=== PATIENT | female | born 1940 | race Caucasian/White ===

== ENCOUNTER 2021-05-18 11:00 | Inpatient (IN) | payer MEDICARE, BC ==
[~2021-05-18] VITALS: Ht 165.1 cm; Wt 65.0 kg
[~2021-05-18 11:00] MED LIST: FLUO20CA39 PO; FURO-150 PO; HYDR-4353 PO; LEVO150T8 PO; OXYB5TAB16 PO; TRIA0.2585 PO
[2021-06-07] MEDS ORDERED: FERR-39 PO (11:15)
[2021-06-07] MEDS ORDERED: VITA400T10 PO (11:15)
[2021-06-07] MEDS ORDERED: CALC-723 PO (11:15)
[2021-06-07] MEDS ORDERED: CHOL100046 PO (11:15)
[2021-06-07] MEDS ORDERED: ASPI-1085 PO (11:15)
[2021-06-07] MEDS ORDERED: LUTE1CAP5 PO (11:15)
[2021-06-08] VITALS (17 sets, daily range): BP systolic 100–208; BP diastolic 49–96
[2021-06-08] MEDS ORDERED: ringers solution, lacted 1,000 ML IV SCH ×2 (05:00→08:05)
[2021-06-08] MEDS ORDERED: cefazolin/dext.iso 2gm/50ml IV ONE (05:30)
[2021-06-08] MEDS ORDERED: famotidine 20mg tablet PO ONE (05:30)
[2021-06-08] MEDS ORDERED: VANCOMYCIN INJ 1000 MG in NORMAL SALINE 200ml IV.SOLN IV ONE (05:30)
[2021-06-08] MEDS ORDERED: tranexamic acid inj. 1,000 MG in 0.7% saline 100 ML PMX IV ONE (05:30)
[2021-06-08] MEDS ORDERED: [UNRECOGNIZED DRUG - CODE] PO (06:13)
[2021-06-08] MEDS ORDERED: vancomycin 1,000mg inj ONE (06:24)
[2021-06-08 07:17] LABS: ALBUMIN 3.4 G/DL (3.4-5.0); ALBUMIN/GLOBULIN RATIO 1.1 (1.1-1.5); BLOOD UREA NITROGEN 20 MG/DL (7-18); BUN/CREATININE RATIO 39.2 (6.6-38.0); CALCIUM 9.1 MG/DL (8.5-10.1); CHLORIDE 107 MMOL/L (99-107); CREATININE 0.51 MG/DL (0.40-0.90); PRE OP ALT 9 U/L (30-65); PRE OP ANION GAP 7 (8-16); PRE OP AST 10 U/L (10-37); PRE OP BILIRUB, TOTAL 0.3 MG/DL (0.0-1.0); PRE OP GLUCOSE 102 MG/DL (70-104); PRE OP POTASSIUM 4.3 MMOL/L (3.4-5.1); PRE OP SODIUM 140 MMOL/L (135-145); TOTAL CARBON DIOXIDE 26.1 MMOL/L (24-32); TOTAL PROTEIN 6.6 G/DL (6.4-8.2); eGFR > 90 ML/MIN
[2021-06-08] MEDS ORDERED: midazolam 1 mg/ML 2ml injection ONE (07:41)
[2021-06-08] MEDS ORDERED: Thrombin (Bovine) 5,000 unit vial TP ONE (07:57)
[2021-06-08] MEDS ORDERED: HYDROmorphone/PF 0.2 MG/ML SYRINGE IV PRN ×2 (08:05)
[2021-06-08] MEDS ORDERED: meperidine/PF 25mg/ml syringe IV PRN (08:05)
[2021-06-08] MEDS ORDERED: proCHLORperazine 10 MG/2 ml inj IV PRN (08:05)
[2021-06-08] MEDS ORDERED: acetaminophen 1,000mg/100ml IV 100 ML IV PRN (08:05)
[2021-06-08] MEDS ORDERED: morphine 4 MG/ML inj SYRINge IV PRN (08:05)
[2021-06-08] MEDS ORDERED: hydrALAZINE 20mg/ml inj. IV PRN (08:05)
[2021-06-08] MEDS ORDERED: labetalol 20mg/4ml (5mg/ml) syringe IV PRN (08:05)
[2021-06-08] MEDS ORDERED: ondansetron/PF 4mg/2ml inj IV PRN ×3 (08:05→10:35)
[2021-06-08] MEDS ORDERED: diphenhydrAMINE 50 mg/ml inj IV PRN (08:05)
[2021-06-08] MEDS ORDERED: naloxone 2mg/2ml inj 2 MG in normal saline 500ml IV soln 500 ML IV PRN (08:05)
[2021-06-08] MEDS ORDERED: morphine 2 MG/ML inj. syringe IV PRN (08:05)
[2021-06-08] MEDS ORDERED: morphine /PF 1mg/ml 10ml inj. ONE (08:15)
[2021-06-08] MEDS ORDERED: propofol inj 20 ML IV ONE ×3 (08:20)
[2021-06-08] MEDS ORDERED: 0.9 % SODIUM CHLORIDE 10 ML VIAL ONE ×2 (08:20)
[2021-06-08] MEDS ORDERED: ROPIVAcaine 0.5% (5mg/ml) 30ml vial ONE (08:20)
[2021-06-08] MEDS ORDERED: bisacodyl 10mg suppository rectal RC PRN (10:35)
[2021-06-08] MEDS ORDERED: acetaminophen 325mg tablet PO PRN (10:35)
[2021-06-08] MEDS ORDERED: diphenhydrAMINE 25mg capsule PO PRN ×2 (10:35)
[2021-06-08] MEDS ORDERED: HYDROmorphone 1 mg/ml syringe IV PRN (10:35)
[2021-06-08] MEDS ORDERED: magnesium hydroxide 30ml (MOM) UD suspension PO PRN (10:35)
[2021-06-08] MEDS ORDERED: HYDROmorphone inj. 0.5 MG/0.5 ML DISP.SYRIN IV PRN (10:35)
[2021-06-08] MEDS ORDERED: oxyCODONE IR 5mg (immed. release) tablet PO PRN ×2 (10:35)
--- NOTE | 2021-06-08 10:40 | NUR ---
Received from OR via BED. 18G TO LEFT AC RUNNING LR, SL TO RIGHT AC. DSG TO LEFT HIP DCI WITH HIP WRAP AND POWDER PACK IN PLACE, FC DRAINING CLEAR YELLOW , accompanied by Anesthesiologist DR NAQVI AND HYDRO GENERATION SUPERVISORNANCY ORR and report given by Anesthesiolgist. Addendum: 06/08/21 at 1103 by Rossy Walker RN Amended: Links added.
--- NOTE | 2021-06-08 12:00 | NUR ---
received report from NANCY Blair. Patient arrived to the floor. VSS. no complaints
[2021-06-08] MEDS: potassium cl 20mEq in 1/2 NS 1,000 ML IV SCH ×2 (12:36→15:11)
[2021-06-08] MEDS: gabapentin 300mg capsule PO SCH ×2 (12:40→22:18)
[2021-06-08] MEDS: acetaminophen 325mg tablet PO SCH ×2 (13:07→20:18)
[2021-06-08] MEDS ORDERED: tranexamic acid 1gm/0.7% sal. 100 ML IV ONE (13:40)
[2021-06-08] MEDS: ceFAZolin/D5W- 1GM premix 50 ML IV SCH (15:11)
[2021-06-08] MEDS ORDERED: ASPIRIN PO PRN (16:50)
[2021-06-08] MEDS ORDERED: CAFFEINE PO PRN (16:50)
[2021-06-08] MEDS ORDERED: zolpidem 5mg tablet PO PRN (17:00)
--- NOTE | 2021-06-08 17:38 | NUR ---
POC updated with nelli De Leon.
[2021-06-08] MEDS ORDERED: VANCOMYCIN 1GM/200ML IVPB 200 ML IV SCH (20:00)
[2021-06-08] MEDS: HYDROcodone/acetaminophen 10/325mg tab PO PRN (20:17)
[2021-06-08] MEDS ORDERED: sennosides 8.6mg tablet PO SCH (21:00)
[2021-06-08] MEDS ORDERED: oxybutynin 5mg tablet PO SCH (21:00)
[2021-06-09] VITALS: BP 97/58
[2021-06-09] MEDS: ceFAZolin/D5W- 1GM premix 50 ML IV SCH (00:18)
[2021-06-09] MEDS: potassium cl 20mEq in 1/2 NS 1,000 ML IV SCH ×2 (00:24→10:35)
[2021-06-09] MEDS: acetaminophen 325mg tablet PO SCH ×2 (02:18→08:33)
[2021-06-09] MEDS: HYDROcodone/acetaminophen 10/325mg tab PO PRN (05:44)
[2021-06-09 06:20] LABS: BASOPHILS % (AUTO) 0.6 % (0-1); EOSINOPHILS # (AUTO) 0.1 X10'3 (0-0.9); EOSINOPHILS % (AUTO) 1.9 % (0-6); HEMATOCRIT 31.7 % (35.0-45.0); HEMOGLOBIN 10.6 g/dl (12.0-16.0); LYMPHOCYTES # (AUTO) 1.2 X10'3 (1.1-4.8); MEAN CORPUSCULAR HEMOGLOBIN 30.6 PG (27.0-31.0); MEAN CORPUSCULAR HGB CONC 33.4 g/dL (33.0-36.5); MEAN CORPUSCULAR VOLUME 91.7 FL (78-98); MEAN PLATELET VOLUME 7.9 FL (7.4-10.4); MONOCYTES # (AUTO) 0.8 X10'3 (0-0.9); MONOCYTES % (AUTO) 11.9 % (2-12); NEUTROPHILS # (AUTO) 4.7 X10'3 (1.8-7.7); NEUTROPHILS % (AUTO) 68.6 % (42-75); PLATELET COUNT 207 X10'3 (140-440); RED BLOOD COUNT 3.46 X10'6 (4.20-5.60); RED CELL DISTRIBUTION WIDTH 13.1 % (11.5-14.5); WHITE BLOOD COUNT 6.9 X10'3 (4.5-11.0)
[2021-06-09 06:30] LABS: ANION GAP 5 (8-16); CHLORIDE 105 MMOL/L (99-107); POTASSIUM 4.8 MMOL/L (3.5-5.1); SODIUM 136 MMOL/L (135-145); TOTAL CARBON DIOXIDE 26.3 MMOL/L (24-32)
[2021-06-09] MEDS ORDERED: levoTHYROXINE 75mcg tablet PO SCH (07:00)
--- NOTE | 2021-06-09 07:16 | NUR ---
Per report son is supposed to call to get update for pt. and wants to leave if pt. discharged r/t living out by [place]. Pt. worked with PT and is ok to ambulate and do stairs with FWW. Pt. states her FWW is in the hospital however is not in her room. Will verify with son that he has walker or else find her walker here before DC. Pt. also has f/c removed at 0530 per report. Will need to monitor for void as pt. has not voided yet. Spoke with ortho ZINC MINER on phon, she plans to DC pt. after these things have been taken care of and will round around 9-930am this am to finish discharge.
[2021-06-09 08:00] VITALS: BP 116/44
[2021-06-09] MEDS ORDERED: furosemide 20MG tablet PO SCH (08:00)
[2021-06-09] MEDS ORDERED: FLUoxetine 20mg capsule PO SCH (08:00)
[2021-06-09] MEDS ORDERED: cholecalciferol (vitamin D3) 1,000 unit (25mcg) tablet PO SCH (08:00)
[2021-06-09] MEDS ORDERED: calcium carbonate 500mg chew tablet PO SCH (08:00)
[2021-06-09] MEDS ORDERED: enoxaparin 40mg/0.4ml syringe SQ SCH (08:00)
[2021-06-09] MEDS ORDERED: ferrous sulfate 325mg tablet PO SCH (08:00)
[2021-06-09] MEDS: gabapentin 300mg capsule PO SCH ×2 (08:32→13:00)
[2021-06-09 11:30] VITALS: BP 109/64
--- NOTE | 2021-06-09 11:54 | NUR ---
DISCHARGE NOTE: Reviewed discharge paperwork with pt. Discussed new medication Lovenox which pt. has at home already. Discussed how to administer it and provided alcohol swabs which pt did not have. Discussed possible ASE of blood thinner and Shelley. Discussed ways to prevent falls at home. Pt. has her walker at bedside. Pt. states she has two family members at home to help take care of her and she also has her dogs staying at another house to prevent injury. Pt. denies any bladder distention and had voided 3 large voids since f/c removed. IVs DC'd, cannulas intact, no s/sx bleeding noted, pressure bandages applied and pt knows to remove Coban in a couple hours. She denies smoking and was able to verbalize several s/sx of infection and knows to call her MD if any of these appear. She denies having an appointment made with Dr. Ceron already but states she will call his office [facility] to make an jess. Waiting on son to arrive and pick her up.
[2021-06-09] MEDS ORDERED: celeCOXIB 100mg capsule PO SCH (20:00)
[2021-06-10] MEDS ORDERED: acetaminophen 325mg tablet PO PRN (10:35)
== END 2021-06-09 13:45 | disposition home or self-care (01) | DRG 470 ==
LOC: PAS IN 06-08 05:06 → UNDOADMIN 06-08 05:06 → PAS IN 06-08 10:41 → SUR 3N 06-08 12:00 → PAS IN 06-08 12:00
PROVIDERS: ADMIT Orthopaedic Surgery; ATTEND Orthopaedic Surgery
PROC: 0SR9039 Replacement of Right Hip Joint with Ceramic Synthetic Substitute, Cemented, Open Approach (ICD-10-PCS; principal; 2021-06-08 07:38)
DX: M16.11 Unilateral primary osteoarthritis, right hip (principal); M25.851 Other specified joint disorders, right hip; M25.751 Osteophyte, right hip; M81.0 Age-related osteoporosis without current pathological fracture; M85.88 Other specified disorders of bone density and structure, other site; Z96.651 Presence of right artificial knee joint; I25.10 Atherosclerotic heart disease of native coronary artery without angina pectoris; F32.A Depression, unspecified; Z90.710 Acquired absence of both cervix and uterus; Z90.49 Acquired absence of other specified parts of digestive tract
CPT/HCPCS: 36415; 72170; 80051; 80053; 82948; 85025; 86885; 86900; 86901; 97110; 97116; 97162; 97530; G0378; J0690; J1170; J1650; J2250; J2274; J2704; J2795; J3370; J3480; J3490; J7120

== ENCOUNTER 2025-01-28 14:17 | Inpatient (IN) | payer MEDICARE, BC ==
[~2025-01-28] VITALS: Ht 165.1 cm; Wt 65.9 kg
[~2025-01-28 14:17] MED LIST changes: -FLUO20CA39 PO; +FLUO20CA41 PO; -FURO-150 PO; +FURO20TA4 PO; -HYDR-4353 PO; +LEVO125T8 PO; -LEVO150T8 PO; -OXYB5TAB16 PO; +POTA-207 PO
[2025-01-28] MEDS ORDERED: LEVO150T8 PO (17:41)
[2025-01-28] MEDS ORDERED: APIX5TAB3 PO (17:44)
[2025-01-28] MEDS ORDERED: COLE1TAB2 PO (17:46)
[2025-01-28] MEDS ORDERED: CELE-193 PO (17:47)
[2025-01-28] MEDS ORDERED: FERR-29 PO (17:48)
[2025-01-28] MEDS ORDERED: ASPI-1395 PO (17:50)
--- NOTE | 2025-01-28 17:59 | RADIOLOGY REPORT ---
CLINICAL INDICATION: L hip fracture TECHNIQUE: 3 views of the left hip Comparison: CT CT ABDOMEN PELVIS on DOS: 09/24/23, PELVIS,LIMITED 1-2 VIEWS on DOS: 06/08/21, PELVIS,LIMITED 1-2 VIEWS on DOS: 06/08/21 FINDINGS/IMPRESSION: Displaced acute traumatic fracture of the left femoral neck. Status post right hip arthroplasty. No evidence of hardware complication.
[2025-01-28 18:00] VITALS: BP 116/43; PULSE 62; RESP 16; TEMP 98.3; O2SAT 98
[2025-01-28] MEDS ORDERED: ondansetron/PF 4mg/2ml inj IV PRN (18:35)
[2025-01-28] MEDS ORDERED: magnesium sulf-water 4G/100mL 100 ML IV PRN (18:35)
[2025-01-28] MEDS ORDERED: magnesium Cl slow-release 64mg tablet PO PRN (18:35)
[2025-01-28] MEDS ORDERED: potassium Cl 20 mEq SR tablet PO PRN ×2 (18:35)
[2025-01-28] MEDS ORDERED: potassium Cl 40MEQ/1/2NS 520ml 520 ML IV PRN (18:35)
[2025-01-28] MEDS ORDERED: magnesium sulf-water 2g/50mL 50 ML IV PRN (18:35)
--- NOTE | 2025-01-28 18:44 | HISTORY AND PHYSICAL-Residence ---
History & Physical Providers to Resident Creating Document: LAMONT SALAZAR RES ~ History of Present Illness Primary Medical Doctor: ANALI Reason for Admit\\Complaint: Hip fracture History of Present Illness Patient is a pleasant elderly female with a history of atrial fibrillation, recent COVID and hypothyroidism who was transferred from [facility] for evaluation and management of intertrochanteric fracture of the left hip. Last Sunday (January 19, 2025), she tripped over the curb and fell forward, landing face 1st. She was able to crawl back home, after which her sister took her to the ER at [facility]. At that time, imaging revealed only a small nondisplaced fracture of the left greater trochanter. No acute intervention was performed, and the patient was discharged home. The following Sunday, while using her walker, she fell backward and again presented to the transferring facility. On the visit, she was admitted for pain management. During the hospital stay. Her bruising extended over nearly the entire left thigh, and she experienced severe pain with any movement. CT scan of the hip was subsequently obtained, revealing a complex intertrochanteric fracture of the left hip. Given the findings in the patient's request, she was transferred here for orthopedic evaluation and surgical repair by Dr. Ceron. The patient has history of atrial fibrillation, diagnosed in July of this year, currently managed with Eliquis 5 mg twice daily, with last dose taken at 9:00 a.m. this morning. She lives alone in a single level home and uses a walker for ambulation at baseline. Allergies: Uncoded Allergies: SULFA (Allergy, Unknown, "NOT TOLERATED" PER HER PARENT WHEN SHE WAS A KID, 09/23/23) Home Medications Home Medications Active Reported Anacin 400-32 mg Tablet (Aspirin/Caffeine) 400 Mg-32 Mg Tablet Tab PO DAILY Iron (Ferrous Sulfate) 325 Mg (65 Mg Iron) Tablet 2 Tab PO DAILY 30 Days Celebrex (Celecoxib) 100 Mg Capsule 1 Cap PO BID 30 Days Colestipol HCl 1 Gram Tablet 2 Tab PO BID 30 Days Eliquis (Apixaban) 5 Mg Tablet 1 Tab PO BID 30 Days Levothyroxine Sodium 150 Mcg Tablet 1 Tab PO DAILY 30 Days Triazolam 0.25 Mg Tablet 1 Tab PO HSPRN PRN MDD 1 Tablet(s) 30 Days Past Medical History Past Medical History Atrial fibrillation, hypothyroidism, hyperlipidemia, osteoarthritis Past Surgical History Surgical History Comment Right knee replacement 12 years ago, right hip replacement two years ago, hysterectomy, appendectomy, cholecystectomy Past Social History Social History Comment And lives alone at a single-level home. She ambulates using a walker, has a distant smoking history; quit 30 years ago. Occasionally drinks alcohol. No recreational drugs. ROS All Other Systems: Reviewed and Negative ROS As stated above in the HPI, otherwise all systems are reviewed and negative. Exam Vitals: General: Awake and Alert, no acute distress. HEENT: Conjunctiva pink, Sclera clear, Mucus Membranes moist. Neck: Supple without masses and tenderness. Resp: Unlabored. Lungs clear to auscultation bilaterally. Heart: Regular Rate and rhythm, normal S1 and S2 without murmur, rub or gallop. Abdomen: Soft and non tender no organomegaly Extremities: Bruises left thigh, left foot mildly externally rotated Skin: Warm and Dry. Advance Care Planning Advanced Care plannin - 30 Minutes Additional Plan Left intertrochanteric hip fracture Initially presented with a small greater trochanter fracture, no progress to a complex intertrochanteric fracture as confirmed on CT Evaluated by Dr. Ceron, who plans for surgical fixation NPO after midnight for anticipated surgery Pain control with the scheduled acetaminophen, and PRN [place] and IV morphine Fall precautions in place Hold Eliquis pending orthopedic surgery CBC, BMP, UA ordered Urinary Tract Infection/UTI UA suggestive of UTI, culture pending Rocephen 1 gm IV daily Paroxysmal atrial fibrillation Continue telemetry Hold Eliquis for pending surgery Continue metoprolol 25 mg p.o. daily Dyslipidemia Continue atorvastatin 20 mg p.o. daily Hypothyroidism on 150 mcg levothyroxine Failure to thrive Generalized weakness Fraility Likely multifactorial, age-related, limited mobility due to hip pain, possible Continue supportive care Functional status/fall risk Lives alone, ambulates with walker at baseline Postoperative physical therapy, gait training, and discharge planning for potential SNF placement versus home health depending on recovery Overactive bladder Using PureWick Code status: Full code DVT prophylaxis: Natalie Salazar Internal Medicine Resident, PGY-3 Date of Service: Jan 28, 2025 Billing Provider: EULALIO LOWE MD Common Visit Codes: [id number] INP/OBS CARE (HIGH) Secondary Visit Codes: [id number] CARE PLAN 30 MINUTES LAMONT SALAZAR, RES Jan 28, 2025 18:44 EULALIO LOWE MD Jan 30, 2025 06:17
[2025-01-28 18:53] VITALS: RESP 16; O2SAT 95
[2025-01-28] MEDS: HYDROcodone/acetaminophen 10/325mg tab PO PRN (19:55)
[2025-01-28] MEDS: metoprolol succinate 25mg (24-HOUR) SR. Tablet PO SCH (20:00)
[2025-01-28] MEDS: K and/or MAG REPLACEMENT MC SCH (20:00)
[2025-01-28] MEDS: enoxaparin 40mg/0.4ml syringe SUBCUT SCH (21:53)
[2025-01-28 22:00] VITALS: BP 116/73; PULSE 59; RESP 15; TEMP 98.5; O2SAT 98
[2025-01-28] MEDS: morphine 4 MG/ML inj SYRINge IV PRN (22:39)
[2025-01-28 22:56] LABS: LEUKOCYTE ESTERASE ,URINE LARGE (Neg); NITRITES, URINE POSITIVE (Neg); OCCULT BLOOD,URINE MODERATE (Neg)
[2025-01-28 23:00] LABS: UA COLLECTION TYPE CLN CATCH MIDSTREAM
[2025-01-28 23:02] LABS: MUCUS STRANDS FEW /LPF (Neg); SQUAMOUS EPITHELIAL CELL,UR FEW /LPF (FEW)
[2025-01-29 06:00] VITALS: BP 113/52; PULSE 50; RESP 13; TEMP 97.3; O2SAT 98
[2025-01-29 06:00] LABS: MEAN PLATELET VOLUME 7.5 FL (7.4-10.4); RED CELL DISTRIBUTION WIDTH 14.6 % (11.5-14.5)
[2025-01-29 06:26] LABS: CHOL/HDL RATIO 2.6 (0.00-4.99); CREATININE 0.58 MG/DL (0.40-0.90); LDL CHOLESTEROL 66 MG/DL (50-100); TOTAL CARBON DIOXIDE 31.2 MMOL/L (24-32); eCRCL 67 ML/MIN; eGFR > 90 ML/MIN
[2025-01-29] MEDS: levoTHYROXINE 75mcg tablet PO SCH (09:45)
[2025-01-29] MEDS: CefTRIAXone/D5W-Rocephin 1gm 50 ML IV SCH (09:47)
[2025-01-29 10:00] VITALS: BP 125/58; PULSE 56; RESP 16; TEMP 98.6; O2SAT 93
--- NOTE | 2025-01-29 12:52 | PROGRESS NOTE- Residence ---
Progress Note - Resident Providers to CC Resident Creating Document: LAMONT SALAZAR RES ~ Antibiotic Timeout Antibiotic Ordered?: Yes Subjective Seen and examined at bedside. Her pain is controlled with current pain management regimen. She was NPO in the morning and was scheduled for the surgery, however, her surgery is rescheduled for tomorrow at 11:00 a.m.. She will be NPO after midnight. Objective Vital Signs Date Time Temp Pulse Resp B/P (MAP) Pulse Ox O2 Delivery O2 Flow Rate FiO2 01/29/25 08:00 Room Air 01/29/25 06:00 97.3 50 13 113/52 (72) 98 General: Awake and Alert, no acute distress. HEENT: Conjunctiva pink, Sclera clear, Mucus Membranes moist. Neck: Supple without masses and tenderness. Resp: Unlabored. Lungs clear to auscultation bilaterally. Heart: Regular Rate and rhythm, normal S1 and S2 without murmur, rub or gallop. Abdomen: Soft and non tender no organomegaly Extremities: Bruises left thigh, left foot mildly externally rotated Skin: Warm and Dry. Result Diagram: 01/29/2553001/29/25530 Advance Care Planning Advanced Care plannin - 30 Minutes Assessment Assessment Last Sunday (January 19, 2025), she tripped over the curb and fell forward, landing face . She was able to crawl back home, after which her sister took her to the ER at [facility]. At that time, imaging revealed only a small nondisplaced fracture of the left greater trochanter. No acute intervention was performed, and the patient was discharged home. The following Sunday, while using her walker, she fell backward and again presented to the transferring facility. On the 2nd visit, she was admitted for pain management. During the hospital stay. Her bruising extended over nearly the entire left thigh, and she experienced severe pain with any movement. CT scan of the hip was subsequently obtained, revealing a complex intertrochanteric fracture of the left hip. Plan Plan Left intertrochanteric hip fracture Initially presented with a small greater trochanter fracture, no progress to a complex intertrochanteric fracture as confirmed on CT Evaluated by Dr. Ceron, who plans for surgical fixation NPO after midnight ; surgery rescheduled for tomorrow at 11:00 a.m. Pain control with the scheduled acetaminophen, and PRN [place] and IV morphine Fall precautions in place Hold Eliquis pending orthopedic surgery Urinary Tract Infection/UTI UA suggestive of UTI, culture Gram-negative rods Continue Rocephen 1 gm IV daily Paroxysmal atrial fibrillation Continue telemetry Hold Eliquis for pending surgery Continue metoprolol 25 mg p.o. daily Dyslipidemia Continue atorvastatin 20 mg p.o. daily Hypothyroidism on 150 mcg levothyroxine Failure to thrive Generalized weakness Fraility Likely multifactorial, age-related, limited mobility due to hip pain, possible Continue supportive care Functional status/fall risk Lives alone, ambulates with walker at baseline Postoperative physical therapy, gait training, and discharge planning for potential SNF placement versus home health depending on recovery Overactive bladder Using PureWick Code status: Full code DVT prophylaxis: Natalie Salazar Internal Medicine Resident, PGY-3 Date of Service: Jan 29, 2025 Billing Provider: EULALIO LOWE MD Common Visit Codes: [id number] INP/OBS CARE(HIGH) LAMONT SALAZAR, RES Jan 29, 2025 12:52 EULALIO LOWE MD Jan 30, 2025 06:18
[2025-01-29] MEDS: JUVEN Smoothie Arginine/Glut./Ca2+Bmb (Juven 19.3pkt) 240ml cup PO SCH (17:49)
[2025-01-29 18:00] VITALS: BP 125/55; PULSE 60; RESP 16; TEMP 97.7; O2SAT 99
[2025-01-29 22:00] VITALS: BP 107/43; PULSE 65; RESP 15; TEMP 98.9; O2SAT 93
[2025-01-30] VITALS (23 sets, daily range): BP systolic 106–145; BP diastolic 42–71; PULSE 64–91; RESP 12–17; TEMP 97.4–98.4; O2SAT 93–100
[2025-01-30 06:55] LABS: MEAN PLATELET VOLUME 7.4 FL (7.4-10.4); RED CELL DISTRIBUTION WIDTH 15.0 % (11.5-14.5)
[2025-01-30 07:04] LABS: CREATININE 0.53 MG/DL (0.40-0.90); TOTAL CARBON DIOXIDE 31.2 MMOL/L (24-32); eCRCL 74 ML/MIN; eGFR > 90 ML/MIN
[2025-01-30] MEDS: ringers solution, lacted 1,000 ML IV SCH ×2 (09:25→11:30)
[2025-01-30] MEDS ORDERED: ondansetron/PF 4mg/2ml inj IV PRN ×2 (09:25→11:30)
[2025-01-30] MEDS ORDERED: fentaNYL/PF 50MCG/1 ML 2ML syringe IV PRN ×2 (09:25)
[2025-01-30] MEDS ORDERED: hydrALAZINE 20mg/ml inj. IV PRN ×2 (09:25→11:30)
[2025-01-30] MEDS ORDERED: labetalol 20mg/4ml (5mg/ml) syringe IV PRN ×2 (09:25→11:30)
[2025-01-30] MEDS ORDERED: morphine 4 MG/ML inj SYRINge IV PRN ×3 (09:25→11:30)
[2025-01-30] MEDS ORDERED: cloNIDine hcl/PF 100mcg/ml inj ONE (11:01)
[2025-01-30] MEDS ORDERED: HYDROmorphone/PF 0.2 MG/ML SYRINGE IV PRN ×2 (11:30)
[2025-01-30] MEDS ORDERED: acetaminophen 1,000mg/100ml IV 100 ML IV PRN (11:30)
[2025-01-30] MEDS ORDERED: fentaNYL/PF 50MCG/1 ML 2ML syringe ONE (11:32)
[2025-01-30] MEDS ORDERED: ROPIVAcaine 0.5% (5mg/ml) 30ml vial ONE (11:32)
[2025-01-30] MEDS ORDERED: dexamethasone sod phosphate 4mg/ml inj. ONE (11:32)
[2025-01-30] MEDS ORDERED: propofol inj 20 ML IV ONE (11:32)
[2025-01-30] MEDS ORDERED: LIDOcaine 2% (20mg/ml) 5ml vial ONE (11:32)
[2025-01-30] MEDS ORDERED: midazolam 1 mg/ML 2ml injection ONE (11:32)
[2025-01-30] MEDS ORDERED: 0.9 % SODIUM CHLORIDE 10 ML VIAL ONE (12:05)
[2025-01-30] MEDS ORDERED: ondansetron/PF 4mg/2ml inj ONE (12:05)
[2025-01-30] MEDS ORDERED: ePHEDrine 50MG/ML INJ. ONE (13:23)
[2025-01-30] MEDS ORDERED: morphine 10mg/ml inj. ONE (13:52)
--- NOTE | 2025-01-30 14:02 | CONSULTATION REPORT ---
History of Present Illness Providers to CC ~ Reason for Admit\\Admit Dx: Hip fracture Refering MD: ANALI History of Present Illness Orthopedic consultation left hip pain. 10-year-old female suffered a slip and fall while at home and L2 risks [place] she presented to the emergency room as she was unable to ambulate. Workup revealed a four part intertrochanteric fracture with displacement and shortening. Patient was then directly admitted to this hospital facility for stabilization and orthopedic intervention. Past medical/surgical history is significant for a total hip total knee arthroplasty on the right side. Examination: Patient has significant external rotation deformity involving the left lower extremity from the hip. No obvious knee involvement skin is intact no ecchymosis is evident good distal pulses good capillary refill to the leg. No other apparent trauma to the other extremities patient denied any head trauma. X-rays: For part intertrochanteric hip fracture with displacement and moderate to severe osteopenia. Assessment: Unstable intertrochanteric hip fracture in a ulnar the patient with significant risk factor and osteoporosis. Plan: Patient has opted for stabilization with a intramedullary hip nail. Indications risks benefits complications were discussed limitations of the procedure were discussed the need for r further surgery was also discussed. I obtained informed consent signed her left hip she will be presented to the hospital operating room next available time. Thank you for the consultation Allergies: Uncoded Allergies: SULFA (Allergy, Unknown, "NOT TOLERATED" PER HER PARENT WHEN SHE WAS A KID, 09/23/23) Home Medications Home Medications Active Reported Anacin 400-32 mg Tablet (Aspirin/Caffeine) 400 Mg-32 Mg Tablet Tab PO DAILY Iron (Ferrous Sulfate) 325 Mg (65 Mg Iron) Tablet 2 Tab PO DAILY 30 Days Celebrex (Celecoxib) 100 Mg Capsule 1 Cap PO BID 30 Days Colestipol HCl 1 Gram Tablet 2 Tab PO BID 30 Days Eliquis (Apixaban) 5 Mg Tablet 1 Tab PO BID 30 Days Levothyroxine Sodium 150 Mcg Tablet 1 Tab PO DAILY 30 Days Triazolam 0.25 Mg Tablet 1 Tab PO HSPRN PRN MDD 1 Tablet(s) 30 Days Physical Exam Last Vital Signs Recorded: Temperature: 98.3, Source: Oral, Heart Rate: 65, Respiratory Rate: 16, BP: 107/53, Pulse Oximetry: 96, Weight: 65.900 Results Diagram Lab Result Diagram: 01/30/2560301/30/25603 ELIZABETH TUCKER MD Jan 30, 2025 14:02
--- NOTE | 2025-01-30 14:10 | OPERATIVE REPORT ---
Operative Report Providers to ~ Date of Procedure: Jan 30, 2025 Pre-Operative Diagnosis: Left hip fracture Post-Operative Diagnosis SAME as PRE-Op Procedure Performed Intramedullary latia stabilization of the left intertrochanteric hip fracture Surgeon: Elizabeth Ceron MD Retail Loss Prevention Specialist None Anesthesiologist: Patti Haque Type of Anesthesia: General Findings: Patient was found to have a unstable four part intertrochanteric hip fracture and moderate to severe osteoporosis Complications None Prosthetics\Implants used: Abhijit 130 degree 13 mm x 100 mm short intramedullary nail. 80 mm anti- rotational screw. 105 mm lag screw. Distal locking screw was 38 mm x 5 mm Estimated Blood Loss: 200 mL Specimen Removed: None Description of Procedure: Patient was taken to the operating room after I obtained informed consent and signed her extremity she was given prophylactic antibiotics per protocol once in the operating room she was given a general anesthetic and placed in the [place] orthopedic traction table lower extremities were placed in traction boots with skin protected with Coban and placed in traction for reduction of the fracture under C-arm fluoroscopy. Operative personnel were protected with a lead apron. Once the hip was reasonably reduced and out the length the foot was placed in the 0 degree rotation vertical isolation drape was placed after prepped with have been completed surgical time-out was completed. Proximal incision proximal to the greater trochanter measuring approximately 5 in was made dissection was then carried through the significant adipose tissue to the tensor fascia and iliotibial band which was incised the length hanley to expose tip of the greater trochanter this was discontinuous with the shaft of the of the femur. However he was able to manipulate the fracture in a reduction technique the help with insertion of the intramedullary guide pin this is confirmed in multiple projections with C-arm fluoroscopy starting Reamer was now used and the guide latia was had been prepared prior to the prep shows a 30 degree angle hip nail 13 mm in diameter by 180 mm long. This is inserted to the proper length worse placement of the day lag screw which was done with a guide pin initially using external alignment system with this short nail. Multiple projections for shoe used to ensure that the guide pin was placed in the central central aspect of the femoral head without compromising cortical surfaces. Lag screw was placed after had been reamed achieving good excellent purchase anti-rotational screw was now used cephalad to this of 80 mm in length. Distal locking screws were now placed through a separate incision ensuring that the patient had adequate internal as well as external rotation this measured 38 mm in length. Postreduction films and completed films were taken with C-arm fluoroscopy. Proximal incision was irrigated thoroughly and hemostasis with electrocautery throughout the procedure. Distal incisions were irrigated and closed with interrupted 2-0 Vicryl. Proximal incision was closed with 1. Vicryl interrupted in the layered closure from iliotibial band of the subcutaneous tissue 2-0 Vicryl was used subcuticular skin john were then used to skin were adjusted sterile island dressings were applied patient was placed in the hip wrap transferred to the gurney and recovery room in stable condition there were no apparent perioperative complications needle and sponge count was reported to be Counts repoted as correct: Yes ELIZABETH CERON MD Jan 30, 2025 14:10
--- NOTE | 2025-01-30 15:01 | PROGRESS NOTE- Residence ---
Progress Note - Resident Providers to CC Resident Creating Document: LAMONT SALAZAR RES ~ Antibiotic Timeout Antibiotic Ordered?: Yes Subjective Seen and examined at bedside. Her pain is controlled with current pain management regimen. Today, she underwent Intramedullary latia stabilization of the left intertrochanteric hip fracture by Dr Ceron. Objective Vital Signs Date Time Temp Pulse Resp B/P (MAP) Pulse Ox O2 Delivery O2 Flow Rate FiO2 01/30/25 14:30 80 13 134/63 (86) 98 Nasal Cannula 2.0 01/30/25 13:58 98.2 General: Awake and Alert, no acute distress. HEENT: Conjunctiva pink, Sclera clear, Mucus Membranes moist. Neck: Supple without masses and tenderness. Resp: Unlabored. Lungs clear to auscultation bilaterally. Heart: Regular Rate and rhythm, normal S1 and S2 without murmur, rub or gallop. Abdomen: Soft and non tender no organomegaly Extremities: Post-op dressing applied. Skin: Warm and Dry. Result Diagram: 01/30/2560301/30/25603 Advance Care Planning Advanced Care plannin - 30 Minutes Assessment Assessment Last Sunday (January 19, 2025), she tripped over the curb and fell forward, landing face 1st. She was able to crawl back home, after which her sister took her to the ER at [facility]. At that time, imaging revealed only a small nondisplaced fracture of the left greater trochanter. No acute intervention was performed, and the patient was discharged home. The following Sunday, while using her walker, she fell backward and again presented to the transferring facility. On the 2nd visit, she was admitted for pain management. During the hospital stay. Her bruising extended over nearly the entire left thigh, and she experienced severe pain with any movement. CT scan of the hip was subsequently obtained, revealing a complex intertrochanteric fracture of the left hip. Plan Plan Left intertrochanteric hip fracture Initially presented with a small greater trochanter fracture, no progress to a complex intertrochanteric fracture as confirmed on CT Evaluated by Dr. Ceron, who plans for surgical fixation NPO after midnight ; surgery rescheduled for tomorrow at 11:00 a.m. Pain control with the scheduled acetaminophen, and PRN [place] and IV morphine Fall precautions in place Hold Merrick pending orthopedic surgery January 30, 2025: Patient underwent Intramedullary latia stabilization of the left intertrochanteric hip fracture. POD#0 Urinary Tract Infection/UTI UA suggestive of UTI, culture Gram-negative rods Continue Rocephen 1 gm IV daily Paroxysmal atrial fibrillation Continue telemetry Hold Eliquis for pending surgery Continue metoprolol 25 mg p.o. daily Dyslipidemia Continue atorvastatin 20 mg p.o. daily Hypothyroidism on 150 mcg levothyroxine Failure to thrive Generalized weakness Fraility Likely multifactorial, age-related, limited mobility due to hip pain, possible Continue supportive care Functional status/fall risk Lives alone, ambulates with walker at baseline Postoperative physical therapy, gait training, and discharge planning for potential SNF placement versus home health depending on recovery Overactive bladder Using PureWick Code status: Full code DVT prophylaxis: Natalie Salazar Internal Medicine Resident, PGY-3 Date of Service: Jan 30, 2025 Billing Provider: EULALIO LOWE MD Common Visit Codes: [id number] INP/OBS CARE(HIGH) LAMONT SALAZAR, RES Jan 30, 2025 15:01 EULALIO LOWE MD Jan 31, 2025 07:30
[2025-01-31 02:03] VITALS: BP 97/34; PULSE 65; RESP 14; TEMP 98.3; O2SAT 97
[2025-01-31 06:00] VITALS: BP 112/52; PULSE 73; RESP 14; TEMP 97.3; O2SAT 94
[2025-01-31 07:15] LABS: MEAN PLATELET VOLUME 7.3 FL (7.4-10.4); RED CELL DISTRIBUTION WIDTH 15.2 % (11.5-14.5)
[2025-01-31 07:44] LABS: CREATININE 0.72 MG/DL (0.40-0.90); TOTAL CARBON DIOXIDE 30.0 MMOL/L (24-32); eCRCL 54 ML/MIN; eGFR 78 ML/MIN
[2025-01-31 09:20] VITALS: BP 109/36; PULSE 72
[2025-01-31 10:00] VITALS: BP 118/42; PULSE 72; RESP 16; TEMP 97.9; O2SAT 99
--- NOTE | 2025-01-31 12:54 | PROGRESS NOTE- Residence ---
Progress Note - Resident Providers to CC Resident Creating Document: LAMONT SALAZAR RES ~ Antibiotic Timeout Antibiotic Ordered?: Yes Subjective Seen and examined at bedside. Her pain is controlled. She underwent Intramedullary latia stabilization of the left intertrochanteric hip fracture by Dr Ceron yesterday. Doing well. Tolerating oral intake, able to pass gas. Objective Vital Signs Date Time Temp Pulse Resp B/P (MAP) Pulse Ox O2 Delivery O2 Flow Rate FiO2 01/31/25 09:20 72 109/36 (60) 01/31/25 06:00 97.3 14 94 Room Air 01/30/25 18:00 1.0 General: Awake and Alert, no acute distress. HEENT: Conjunctiva pink, Sclera clear, Mucus Membranes moist. Neck: Supple without masses and tenderness. Resp: Unlabored. Lungs clear to auscultation bilaterally. Heart: Regular Rate and rhythm, normal S1 and S2 without murmur, rub or gallop. Abdomen: Soft and non tender no organomegaly Extremities: Post-op dressing applied. Skin: Warm and Dry. Result Diagram: 01/31/2546 01/31/25645 Advance Care Planning Advanced Care plannin - 30 Minutes Assessment Assessment Last Sunday (January 19, 2025), she tripped over the curb and fell forward, landing face . She was able to crawl back home, after which her sister took her to the ER at [facility]. At that time, imaging revealed only a small nondisplaced fracture of the left greater trochanter. No acute intervention was performed, and the patient was discharged home. The following Sunday, while using her walker, she fell backward and again presented to the transferring facility. On the 2nd visit, she was admitted for pain management. During the hospital stay. Her bruising extended over nearly the entire left thigh, and she experienced severe pain with any movement. CT scan of the hip was subsequently obtained, revealing a complex intertrochanteric fracture of the left hip. Plan Plan Left intertrochanteric hip fracture Initially presented with a small greater trochanter fracture, no progress to a complex intertrochanteric fracture as confirmed on CT Evaluated by Dr. Ceron, who plans for surgical fixation NPO after midnight ; surgery rescheduled for tomorrow at 11:00 a.m. Pain control with the scheduled acetaminophen, and PRN [place] and IV morphine Fall precautions in place Hold Eliquis pending orthopedic surgery January 30, 2025: Patient underwent Intramedullary latia stabilization of the left intertrochanteric hip fracture. POD#0 January 31, 2025: POD#1. S/P Intramedullary latia stabilization of the left intertrochanteric hip fracture. She is doing well. Urinary Tract Infection/UTI UA suggestive of UTI, culture Gram-negative rods Urine culture grew goldberg sensitive E.Coli. On Ceftriaxone 1 gm IV daily, Day 3. Continue Rocephen 1 gm IV daily Paroxysmal atrial fibrillation Continue telemetry Hold Eliquis for pending surgery Continue metoprolol 25 mg p.o. daily Dyslipidemia Continue atorvastatin 20 mg p.o. daily Hypothyroidism on 150 mcg levothyroxine Failure to thrive Generalized weakness Fraility Likely multifactorial, age-related, limited mobility due to hip pain, possible Continue supportive care Functional status/fall risk Lives alone, ambulates with walker at baseline Postoperative physical therapy, gait training, and discharge planning for potential SNF placement versus home health depending on recovery Overactive bladder Using PureWick Code status: Full code DVT prophylaxis: Natalie Salazar Internal Medicine Resident, PGY-3 Date of Service: Jan 31, 2025 Billing Provider: EULALIO LOWE MD Common Visit Codes: [id number] INP/OBS CARE(HIGH) LAMONT SALAZAR, RES Jan 31, 2025 12:54 EULALIO LOWE MD Feb 01, 2025 07:36
[2025-01-31 18:00] VITALS: BP 111/42; PULSE 80; RESP 16; TEMP 98.1; O2SAT 96
[2025-01-31 22:00] VITALS: BP 105/45; PULSE 82; RESP 15; TEMP 98.3; O2SAT 96
[2025-02-01 06:00] VITALS: BP 116/44; PULSE 77; RESP 15; TEMP 97.9; O2SAT 95
--- NOTE | 2025-02-01 06:23 | RADIOLOGY REPORT ---
CLINICAL INDICATION: Left hip fracture fixation. TECHNIQUE: Fluoroscopic spot views of the left hip were performed intraoperatively. DI HIP, 1 VIEW WITH PELVIS fluoro time 103.6 seconds, rad dose [id number] mGym2 Comparison: DI HIP, 1 VIEW WITH PELVIS on DOS: 01/28/25 FINDINGS/IMPRESSION: Postoperative changes of left proximal femoral trochanteric nail fixation.
[2025-02-01 06:36] LABS: MEAN PLATELET VOLUME 7.1 FL (7.4-10.4); RED CELL DISTRIBUTION WIDTH 15.7 % (11.5-14.5)
[2025-02-01 06:50] LABS: CREATININE 0.49 MG/DL (0.40-0.90); TOTAL CARBON DIOXIDE 31.4 MMOL/L (24-32); eCRCL 80 ML/MIN; eGFR > 90 ML/MIN
[2025-02-01 08:00] VITALS: RESP 16; O2SAT 98
[2025-02-01 10:00] VITALS: BP 112/46; PULSE 81; RESP 16; TEMP 98; O2SAT 94
--- NOTE | 2025-02-01 14:52 | PROGRESS NOTE- Residence ---
Progress Note - Resident Providers to CC Resident Creating Document: LAMONT SALAZAR RES ~ Antibiotic Timeout Antibiotic Ordered?: Yes Subjective Seen and examined at bedside. Pain is controlled. She underwent Intramedullary latia stabilization of the left intertrochanteric hip fracture by Dr Ceron on 01/30, POD#2. Doing well. Tolerating oral intake, BM +. SNF/Rehab at [place]. Objective Vital Signs Date Time Temp Pulse Resp B/P (MAP) Pulse Ox O2 Delivery O2 Flow Rate FiO2 02/01/25 13:59 16 02/01/25 10:00 98.0 81 112/46 (68) 94 Room Air 01/31/25 20:00 0.0 General: Awake and Alert, no acute distress. HEENT: Conjunctiva pink, Sclera clear, Mucus Membranes moist. Neck: Supple without masses and tenderness. Resp: Unlabored. Lungs clear to auscultation bilaterally. Heart: Regular Rate and rhythm, normal S1 and S2 without murmur, rub or gallop. Abdomen: Soft and non tender no organomegaly Extremities: Post-op dressing applied. Skin: Warm and Dry. Result Diagram: 02/01/2560502/01/25605 Advance Care Planning Advanced Care plannin - 30 Minutes Assessment Assessment Last Sunday (January 19, 2025), she tripped over the curb and fell forward, landing face 1st. She was able to crawl back home, after which her sister took her to the ER at [facility]. At that time, imaging revealed only a small nondisplaced fracture of the left greater trochanter. No acute intervention was performed, and the patient was discharged home. The following Sunday, while using her walker, she fell backward and again presented to the transferring facility. On the 2nd visit, she was admitted for pain management. During the hospital stay. Her bruising extended over nearly the entire left thigh, and she experienced severe pain with any movement. CT scan of the hip was subsequently obtained, revealing a complex intertrochanteric fracture of the left hip. Plan Plan Left intertrochanteric hip fracture Initially presented with a small greater trochanter fracture, no progress to a complex intertrochanteric fracture as confirmed on CT Evaluated by Dr. Ceron, who plans for surgical fixation NPO after midnight ; surgery rescheduled for tomorrow at 11:00 a.m. Pain control with the scheduled acetaminophen, and PRN [place] and IV morphine Fall precautions in place Hold Eliquis pending orthopedic surgery January 30, 2025: Patient underwent Intramedullary latia stabilization of the left intertrochanteric hip fracture. POD#0 January 31, 2025: POD#1. S/P Intramedullary latia stabilization of the left intertrochanteric hip fracture. She is doing well. Sober 03/2025: POD#2. Doing well. Pain controlled. PT recommends PAC. SNF/Rheab placement at [place], CM is aware. Urinary Tract Infection/UTI UA suggestive of UTI, culture Gram-negative rods Urine culture grew goldberg sensitive E.Coli. On Ceftriaxone 1 gm IV daily, Day 3. Continue Rocephen 1 gm IV daily 02/01/25: Rocephen discontinued. Levofloxacin 500 mg p.o daily started (for 3 days only). Paroxysmal atrial fibrillation Continue telemetry Hold Eliquis for pending surgery Continue metoprolol 25 mg p.o. daily Dyslipidemia Continue atorvastatin 20 mg p.o. daily Hypothyroidism on 150 mcg levothyroxine Failure to thrive Generalized weakness Fraility Likely multifactorial, age-related, limited mobility due to hip pain, possible Continue supportive care Functional status/fall risk Lives alone, ambulates with walker at baseline Postoperative physical therapy, gait training, and discharge planning for potential SNF placement versus home health depending on recovery Overactive bladder Using PureWick Code status: Full code DVT prophylaxis: Natalie Salazar Internal Medicine Resident, PGY-3 Date of Service: Feb 01, 2025 Billing Provider: EULALIO LOWE MD Common Visit Codes: [id number] INP/OBS CARE(HIGH) LAMONT SALAZAR, RES Feb 01, 2025 14:52 EULALIO LOWE MD Feb 02, 2025 06:47
[2025-02-01 18:00] VITALS: BP 104/44; PULSE 72; RESP 14; TEMP 97.9; O2SAT 96
[2025-02-01 22:00] VITALS: BP 106/55; PULSE 67; RESP 14; TEMP 97.9; O2SAT 96
[2025-02-02 05:49] LABS: MEAN PLATELET VOLUME 7.5 FL (7.4-10.4); RED CELL DISTRIBUTION WIDTH 15.6 % (11.5-14.5)
[2025-02-02 06:00] VITALS: BP 121/45; PULSE 62; RESP 16; TEMP 98; O2SAT 93
[2025-02-02 06:22] LABS: CREATININE 0.52 MG/DL (0.40-0.90); TOTAL CARBON DIOXIDE 30.2 MMOL/L (24-32); eCRCL 75 ML/MIN; eGFR > 90 ML/MIN
[2025-02-02 06:49] VITALS: BP 121/45; PULSE 62; RESP 16; TEMP 98; O2SAT 93
[2025-02-02 10:00] VITALS: BP 111/49; PULSE 89; RESP 16; TEMP 97.8; O2SAT 95
--- NOTE | 2025-02-02 17:35 | PROGRESS NOTE- Residence ---
Progress Note - Resident Providers to CC Resident Creating Document: MARK KING, ANGELO ~ Central Line/PICC still needed: N\A Rachel-Non Protocol Rachel Indications Met/Not Met: F/C Indications Not Met Antibiotic Timeout Antibiotic Ordered?: Yes Subjective Seen and examined at bedside. Mobilize to her chair, eating breakfast. Pain is well controlled with [place] 10 [place] 5. She underwent Intramedullary latia stabilization of the left intertrochanteric hip fracture by Dr Ceron on 01/30, POD#3. Doing well. Tolerating oral intake, BM +. SNF/Rehab at [place]. Passed stools yesterday. PT cleared her for post acute care. Objective Vital Signs Date Time Temp Pulse Resp B/P (MAP) Pulse Ox O2 Delivery O2 Flow Rate FiO2 02/02/25 15:42 16 02/02/25 10:00 97.8 89 111/49 (69) 95 Room Air 01/31/25 20:00 0.0 Result Diagram: 02/02/25 0515 02/02/25 0515 General: Well alert, well oriented, not confused, not agitated, not in acute distress, well cooperated during the physical. HEENT: Conjunctive are pink, sclerae clear, no icterus, pupil is equal in both sides, reactive to light, no ear discharge, no pharyngeal erythema or an edema. Neck: Supple, no JVD, no lymphadenopathy and thyromegaly. Chest: Equal air entry on both lungs, no added sounds, no wheeze. Cardiovascular: S1-S2 regular sinus rhythm and, regular rate, no gallops, no rubs, no murmurs Abdomen: No visible peristalsis, Bowel sounds present on auscultation, soft, nontender, no guarding, no rigidity Extremities: Surgical site looks clean, no secretions with a bandages. No obvious deformities, no pitting edema bilaterally, capillary refill intact, peripheral pulsations are intact on both sides Central Nervous System: No focal neurological deficits, no motor or sensory weakness in all 4 extremities, could move all 4 extremities, 2+ deep tendon reflexes, negative Babinski. Musculoskeletal: No joint swelling, deformities, inflammations, and no scoliosis and back tenderness Skin: Warm and dry. Assessment Assessment Last Sunday (January 19, 2025), she tripped over the curb and fell forward, landing face 1st. She was able to crawl back home, after which her sister took her to the ER at [facility]. At that time, imaging revealed only a small nondisplaced fracture of the left greater trochanter. No acute intervention was performed, and the patient was discharged home. The following Sunday, while using her walker, she fell backward and again presented to the transferring facility. On the 2nd visit, she was admitted for pain management. During the hospital stay. Her bruising extended over nearly the entire left thigh, and she experienced severe pain with any movement. CT scan of the hip was subsequently obtained, revealing a complex intertrochanteric fracture of the left hip. Plan Plan Left intertrochanteric hip fracture after a ground level mechanical fall Postop day 3 of ORIF with latia fixation Dr. Ceron Pain control with the scheduled acetaminophen, and PRN [place] and IV morphine CBC, CMP normal Patient passing stools. Fall precautions in place Patient restarted on Eliquis 5 mg p.o. b.i.d. since there is no and some bleeding. H&H stable. PT recommends PAC. SNF/Rheab placement at [place], CM is aware. Urinary Tract Infection/UTI UA suggestive of UTI, culture Gram-negative rods Urine culture grew goldberg sensitive E.Coli. On Ceftriaxone 1 gm IV daily, Day 3. Continue Rocephen 1 gm IV daily 02/02/25: Patient has not levofloxacin 500 mg p.o. daily. Paroxysmal atrial fibrillation Continue telemetry Patient restarted on Eliquis 5 mg p.o. b.i.d. since there is no and some bleeding. H&H stable. Continue metoprolol 25 mg p.o. daily Dyslipidemia Continue atorvastatin 20 mg p.o. daily Hypothyroidism on 150 mcg levothyroxine Failure to thrive Generalized weakness Fraility Likely multifactorial, age-related, limited mobility due to hip pain, possible Continue supportive care Overactive bladder Using PureWick Code status: Full code DVT prophylaxis: Lovenox Mark King Internal Medicine, PGY 1 [facility] Date of Service: Feb 02, 2025 Billing Provider: EULALIO LOWE MD Common Visit Codes: [id number] INP/OBS CARE(HIGH) MARK KING, RES Feb 02, 2025 17:35 EULALIO LOWE MD Feb 03, 2025 07:55
[2025-02-02 18:00] VITALS: BP 103/46; PULSE 68; RESP 16; TEMP 98.9; O2SAT 97
[2025-02-02 22:00] VITALS: BP 105/78; PULSE 69; RESP 16; TEMP 98.1; O2SAT 96
[2025-02-03 06:00] VITALS: BP 101/42; PULSE 64; RESP 14; TEMP 98.1; O2SAT 94
[2025-02-03 10:00] VITALS: BP 118/54; PULSE 67; RESP 16; TEMP 98.1; O2SAT 97
[2025-02-03 18:00] VITALS: BP 119/54; PULSE 63; RESP 18; TEMP 97.9; O2SAT 97
--- NOTE | 2025-02-03 18:34 | PROGRESS NOTE- Residence ---
Progress Note - Resident Providers to CC Resident Creating Document: MARK KING, ANGELO ~ Central Line/PICC still needed: N\A Rachel-Non Protocol Rachel Indications Met/Not Met: F/C Indications Not Met Antibiotic Timeout Antibiotic Ordered?: Yes Subjective Seen and examined at bedside. Mobilize to her chair, eating breakfast. Pain is well controlled with [place] 10 [place] 5. She underwent Intramedullary latia stabilization of the left intertrochanteric hip fracture by Dr Ceron on 01/30, POD#3. Doing well. Tolerating oral intake, BM +. SNF/Rehab at [facility]. Passing stools. PT cleared her for post acute care. Objective Vital Signs Date Time Temp Pulse Resp B/P (MAP) Pulse Ox O2 Delivery O2 Flow Rate FiO2 02/03/25 12:24 17 02/03/25 10:00 98.1 67 118/54 (75) 97 Room Air 01/31/25 20:00 0.0 Result Diagram: 02/02/2515 02/02/2515 General: Well alert, well oriented, not confused, not agitated, not in acute distress, well cooperated during the physical. HEENT: Conjunctive are pink, sclerae clear, no icterus, pupil is equal in both sides, reactive to light, no ear discharge, no pharyngeal erythema or an edema. Neck: Supple, no JVD, no lymphadenopathy and thyromegaly. Chest: Equal air entry on both lungs, no added sounds, no wheeze. Cardiovascular: S1-S2 regular sinus rhythm and, regular rate, no gallops, no rubs, no murmurs Abdomen: No visible peristalsis, Bowel sounds present on auscultation, soft, nontender, no guarding, no rigidity Extremities: Surgical site looks clean, no secretions with a bandages. No obvious deformities, no pitting edema bilaterally, capillary refill intact, peripheral pulsations are intact on both sides Central Nervous System: No focal neurological deficits, no motor or sensory weakness in all 4 extremities, could move all 4 extremities, 2+ deep tendon reflexes, negative Babinski. Musculoskeletal: No joint swelling, deformities, inflammations, and no scoliosis and back tenderness Skin: Warm and dry. Assessment Assessment Last Sunday (January 19, 2025), she tripped over the curb and fell forward, landing face 1st. She was able to crawl back home, after which her sister took her to the ER at [facility]. At that time, imaging revealed only a small nondisplaced fracture of the left greater trochanter. No acute intervention was performed, and the patient was discharged home. The following Sunday, while using her walker, she fell backward and again presented to the transferring facility. On the 2nd visit, she was admitted for pain management. During the hospital stay. Her bruising extended over nearly the entire left thigh, and she experienced severe pain with any movement. CT scan of the hip was subsequently obtained, revealing a complex intertrochanteric fracture of the left hip. Plan Plan Left intertrochanteric hip fracture after a ground level mechanical fall Postop day 4 of ORIF with latia fixation Dr. Ceron Pain control with the scheduled acetaminophen, and PRN [place] and IV morphine CBC, CMP normal Patient passing stools. Fall precautions in place Patient restarted on Eliquis 5 mg p.o. b.i.d. since there is no and some bleeding. H&H stable. PT recommends PAC. SNF/Rheab placement at [place], CM is aware. Urinary Tract Infection/UTI UA suggestive of UTI, culture Gram-negative rods Urine culture grew goldberg sensitive E.Coli. On Ceftriaxone 1 gm IV daily, Day 3. Continue Rocephen 1 gm IV daily 02/02/25: Patient is on levofloxacin 500 mg p.o. daily. 02/03/2025: Completed last dose of levofloxacin 500 mg p.o. daily Paroxysmal atrial fibrillation Continue telemetry Patient restarted on Eliquis 5 mg p.o. b.i.d. since there is no and some bleeding. H&H stable. Continue metoprolol 25 mg p.o. daily Dyslipidemia Continue atorvastatin 20 mg p.o. daily Hypothyroidism on 150 mcg levothyroxine Failure to thrive Generalized weakness Fraility Likely multifactorial, age-related, limited mobility due to hip pain, possible Continue supportive care Overactive bladder Using PureWick Code status: Full code DVT prophylaxis: Natalie King Internal Medicine, PGY 1 [facility] Date of Service: Feb 03, 2025 Billing Provider: EULALIO LOWE MD Common Visit Codes: [id number] INP/OBS CARE(HIGH) MARK KING, RES Feb 03, 2025 18:34 EULALIO LOWE MD Feb 04, 2025 06:56
[2025-02-03 22:00] VITALS: BP 111/47; PULSE 64; RESP 14; TEMP 97.2; O2SAT 98
[2025-02-04 06:00] VITALS: BP 99/53; PULSE 57; RESP 14; TEMP 97.2; O2SAT 93
[2025-02-04] MEDS: HYDROcodone/acetaminophen 5mg/325mg tablet PO PRN (08:57)
[2025-02-04 11:52] VITALS: RESP 16
--- NOTE | 2025-02-04 13:56 | DISCHARGE SUMMARY-Residence ---
Discharge Summary Providers to Resident Creating Document: MARK KING, RES ~ Discharge Summary Admission Diagnosis: Left hip fracture Hospital Course DATE OF ADMISSION: 01/28/2025 DATE OF DISCHARGE: 02/04/2025 Discharge Diagnosis\Comment: Intramedullary latia stabilization of the left intertrochanteric hip fracture Ground level mechanical fall Urinary tract infection Newly diagnosed atrial fibrillation in July 2024 Hypothyroidism Dyslipidemia Overactive bladder Operations\Procedures: Intramedullary latia stabilization of the left intertrochanteric hip fracture on 01/30/[address] Ceron Consultants: Dr. Ceron, orthopedic surgeon Complications: None Condition on DC: Stable Discharge Summary: History of present illness: Pleasant elderly female with a history of atrial fibrillation, overactive bladder and hypothyroidism was transferred from [facility] for evaluation and management of intertrochanteric fracture of the left hip. On 01/19/2025 she tripped over the curb and fell forward, landing face . She was able to crawl back home, after which her sister took her to the ER at [facility]. At that time, imaging revealed only a small nondisplaced fracture of the left greater trochanter. No acute intervention was performed, and the patient was discharged home. The following Sunday, while using her walker, she fell backward and again presented to the transferring facility. On the visit, she was admitted for pain management. Her bruising extended over nearly the entire left thigh, and she experienced severe pain with any movement. CT scan of the hip was subsequently obtained, revealing a complex intertrochanteric fracture of the left hip. Given the findings, she was transferred here for orthopedic evaluation and surgical repair by Dr. Ceron. The patient has history of atrial fibrillation, diagnosed in July of this year, currently managed with Eliquis 5 mg twice daily, with last dose taken at 9:00 a.m. this morning. She lives alone in a single level home and uses a walker for ambulation at baseline. Hospital course: On arrival, the patient was prepared for surgery. Eliquis was held leading up to her surgery and metoprolol was started for her current hospitalization. She underwent intramedullary latia stabilization of the left intertrochanteric hip fracture with Dr. Ceron on 01/30/2025. She sustained the procedure well. No postoperative complication. She was started on ceftriaxone since she was going to surgery. Her UA was positive for UTI, which grew E coli which was pansensitive. She was later switched to levofloxacin incomplete her full antibiotic course in the hospital. She was started with Eliquis after surgery. She had 1 g drop in her hemoglobin after surgery, but her vitals were stable. Physical therapy evaluated her and cleared her for post acute care. He is symptomatically better and hemodynamically stable and hence being transferred to [facility]. Vital Signs Date Time Temp Pulse Resp B/P (MAP) Pulse Ox O2 Delivery O2 Flow Rate FiO2 02/04/25 11:52 16 02/04/25 08:00 Room Air 02/04/25 06:00 97.2 57 99/53 (68) 93 01/31/25 20:00 0.0 Laboratory investigations: CBC showed no leukocytosis, H and H was stable around 11 in 10. CMP was normal TSH 2.18 Normal lipid levels Urinalysis positive for UTI with WBC 5200, 3+ bacteria, large leukocyte est erase, positive nitrate Imaging: Hip x-ray: 01/28/2025 Displaced acute traumatic fracture of the left femoral neck. Status post right hip arthroplasty. No evidence of hardware complication. 01/30/2025: Postoperative changes of left proximal femoral trochanteric nail fixation. Physical exam on discharge: General: Well alert, well oriented, not confused, not agitated, not in acute distress, well cooperated during the physical. HEENT: Conjunctive are pink, sclerae clear, no icterus, pupil is equal in both sides, reactive to light, no ear discharge, no pharyngeal erythema or an edema. Neck: Supple, no JVD, no lymphadenopathy and thyromegaly. Chest: Equal air entry on both lungs, no added sounds, no wheeze. Cardiovascular: S1-S2 regular sinus rhythm and, regular rate, no gallops, no rubs, no murmurs Abdomen: No visible peristalsis, Bowel sounds present on auscultation, soft, nontender, no guarding, no rigidity Extremities: Surgical site looks clean, no secretions with a bandages. No obvious deformities, no pitting edema bilaterally, capillary refill intact, peripheral pulsations are intact on both sides Central Nervous System: No focal neurological deficits, no motor or sensory weakness in all 4 extremities, could move all 4 extremities, 2+ deep tendon reflexes, negative Babinski. Musculoskeletal: No joint swelling, deformities, inflammations, and no scoliosis and back tenderness Skin: Warm and dry. Medications on discharge: Eliquis 5 mg p.o. b.i.d. Atorvastatin 20 mg p.o. daily Levothyroxine 150 mcg p.o. daily Ferrous sulfate 650 mg p.o. daily Discharge instructions: Follow up with the primary care physician in 1-2 weeks Follow up with orthopedic surgeon, Dr. Ceron in 2 weeks Continue home medications Follow-up with your primary care provider/fruit washer regarding rate control medication for atrial fibrillation. Weight-bearing as tolerated , work with physical therapy Visit ER immediately in case of any acute symptoms including operative site swelling, discharge, fever with chills, falls, syncope. *Problems/Diagnosis: (1) Atrial fibrillation Status: Chronic (2) UTI (urinary tract infection) Status: Acute (3) Status post open reduction and internal fixation (ORIF) of fracture Status: Acute (4) Ground-level fall Status: Acute (5) Dyslipidemia Status: Chronic (6) Overactive bladder Status: Chronic (7) Hypothyroidism Status: Chronic Total Time Spent on D/C: > 30 Minutes Counseling Services Smoking & Tobacco Cessation: N/A Date of Service: Feb 04, 2025 Billing Provider: EULALIO LOWE MD Common Visit Codes: [id number] DISCH DAY >30min MARK KING, RES Feb 04, 2025 13:47 EULALIO LOWE MD Feb 05, 2025 10:01
== END 2025-02-04 11:57 | disposition swing bed (61) | DRG 481 ==
LOC: UNDOADMIN 17:20 → ORTHO 4S 17:20
PROVIDERS: ADMIT Internal Medicine; ATTEND Internal Medicine
PROC: 0QS706Z Reposition Left Upper Femur with Intramedullary Internal Fixation Device, Open Approach (ICD-10-PCS; principal; 2025-01-30 11:26)
DX: M80.052A Age-related osteoporosis with current pathological fracture, left femur, initial encounter for fracture (principal); N39.0 Urinary tract infection, site not specified; I48.0 Paroxysmal atrial fibrillation; E03.9 Hypothyroidism, unspecified; Z96.651 Presence of right artificial knee joint; R62.7 Adult failure to thrive; N32.81 Overactive bladder; Z60.2 Problems related to living alone; W18.39XA Other fall on same level, initial encounter; Z79.01 Long term (current) use of anticoagulants; Z79.899 Other long term (current) drug therapy; Y93.89 Activity, other specified; Y92.89 Other specified places as the place of occurrence of the external cause; Y99.8 Other external cause status; Z88.2 Allergy status to sulfonamides; Z68.24 Body mass index [BMI] 24.0-24.9, adult
CPT/HCPCS: 36415; 73501; 76000; 80048; 80061; 81001; 82948; 84443; 85025; 87077; 87081; 87088; 87186; 97110; 97116; 97161; 97530; A4618; A6209; A6213; A6253; A6258; A6449; A7000; C1713; G0378; J0690; J0696; J0735; J1100; J1650; J2003; J2250; J2270; J2274; J2405; J2704; J2795; J3010; J3490; J7120